=== PATIENT | male | born 1945 | race Caucasian/White ===

== ENCOUNTER → 2018-11-30 | Outpatient (CLI) | payer MEDICARE, OTHER | END | disposition home or self-care (01) | LOC: PCVCCLINIC 14:30 | PROVIDERS: ATTEND Internal Medicine Cardiovascular Disease | DX: I71.4 Abdominal aortic aneurysm, without rupture (principal); I10 Essential (primary) hypertension; E78.00 Pure hypercholesterolemia, unspecified; I49.5 Sick sinus syndrome; I65.23 Occlusion and stenosis of bilateral carotid arteries; M54.5 Low back pain; G89.29 Other chronic pain; Z72.0 Tobacco use | CPT/HCPCS: 93005; 93280; G0463 ==